=== PATIENT | female | born 1965 | race Caucasian/White ===

== ENCOUNTER 2021-06-06 05:56 | Day surgery (SDC) | payer BC ==
[2021-06-06] MEDS ORDERED: Acetaminophen 325 MG Tab PO SCH (06:00)
[2021-06-06] MEDS ORDERED: oxyCODONE ER 10 MG TAB.ER PO SCH (06:00)
[2021-06-06] MEDS ORDERED: Pregabalin 25 MG Cap PO SCH (06:00)
[2021-06-06] MEDS ORDERED: Morphine 8 MG, EPINEPHrine 0.3 MG, Cefuroxime 750 MG, Ketorolac 30 MG, Sodium Chloride ... PRN ×5 (06:00)
--- NOTE | 2021-06-06 06:23 | PCM.PREANE ---
Preanesthetic Assessment - Procedure Proposed Procedure: Right total knee arthroplasty - Anesthesia/Transfusion/Family Hx Anesthesia History: Prior Anesthesia Without Reaction Family History of Anesthesia Reaction: No Transfusion History: No Prior Transfusion(s) Intubation History: Unknown - Review of Systems General: No Symptoms Pulmonary: No Symptoms Cardiovascular: No Symptoms Gastrointestinal: No Symptoms Neurological: No Symptoms Other: Reports: None - Physical Assessment NPO Status Date: 06/05/21 NPO Status Time: 20:30 Vital Signs: 113/78 HR 76 97.6 RR 16 96% RA Height: 1.83 m Weight: 122.9 kg ASA Class: 2 Mental Status: Alert & Oriented x3 Airway Class: Mallampati = 3 Dentition: Reports: Dentures (top ), Partial (bottom) Thyro-Mental Finger Breadths: 3 Mouth Opening Finger Breadths: 2 ROM/Head Extension: Full Lungs: Clear to Auscultation, Normal Respiratory Effort Cardiovascular: Regular Rate, Regular Rhythm, No Murmurs - Lab Values: Labs within acceptable range and okay to proceed - Imaging/EKG Impressions: EKG NSR HR 60 - Allergies Allergies/Adverse Reactions: Allergies Allergy/AdvReac Type Severity Reaction Status Date / Time No Known Allergies Allergy Verified 06/05/21 12:45 - Blood Blood Available: No - Acknowledgements Anesthesia Type Planned: General Anesthesia, Spinal Pt an Appropriate Candidate for the Planned Anesthesia: Yes Alternatives and Risks of Anesthesia Discussed w Pt/Guardian: Yes Pt/Guardian Understands and Agrees with Anesthesia Plan: Yes PreAnesthesia Questionnaire HEENT History: Reports: Impaired Vision Cardiovascular History: Reports: None Respiratory History: Reports: None Gastrointestinal History: Reports: Colon Polyp, GERD (food dependent), Other (See Below) (vit D deiciency) Genitourinary History: Reports: None Musculoskeletal History: Reports: Arthritis, Other (See Below) Other Musculoskeletal History: chronic knee pain Neurological History: Reports: Other (See Below) (Restless legs) Psychiatric History: Reports: None Endocrine/Metabolic History: Reports: Obesity/BMI 30+ Hematologic History: Reports: None Immunologic History: Reports: None Oncologic (Cancer) History: Reports: None Dermatologic History: Reports: None - Past Surgical History HEENT Surgical History: Reports: Naso-Sinus Surgery (somnoplasty), Other (See Below) (uvulectomy) GI Surgical History: Reports: Appendectomy, Cholecystectomy, Colonoscopy Female Surgical History: Reports: Hysterectomy, Tubal Ligation Musculoskeletal Surgical History: Reports: Other (See Below) (hammer toe R, zzhallux valgus correction wwo sesamoidectomy smpl exostectomy) Dermatological Surgical History: Reports: Other (See Below) (fatty tumor removed from left neck) - SUBSTANCE USE Tobacco Use Status *Q: Former Tobacco User (quit 5 years ago) Second Hand Smoke Exposure: No Days Per Week of Alcohol Use: 0 Number of Drinks Per Day: 0 Total Drinks Per Week: 0 Recreational Drug Use History: No - HOME MEDS Home Medications: Home Meds Aspirin [Aspirin EC] 325 mg PO BID #84 tab 06/05/21 [Rx] Doxepin HCl 150 mg PO DAILY 06/05/21 [History] Pramipexole Di-HCl [Mirapex] 1.5 mg PO DAILY 06/05/21 [History] oxyCODONE 5 - 10 mg PO Q4H PRN #40 tab 06/05/21 [Rx] - CURRENT (IN HOUSE) MEDS Current Meds: Current Medications Acetaminophen (Acetaminophen 325 Mg Tab) 975 mg PO ONETIME ARELY Stop: 06/06/21 16:00 Morphine Sulfate 8 mg/Epinephrine HCl 0.3 mg/Cefuroxime Sodium 750 mg/Ketorolac Tromethamine 30 mg/Sodium Chloride 7.9 ml 0 mg .XX ASDIRECTED PRN PRN Reason: Pain Lactated Ringer's (Ringers, Lactated) 1,000 mls @ 125 mls/hr IV ASDIRECTED ARELY Stop: 06/06/21 23:00 Lidocaine/Sodium Bicarbonate (Lidocaine 1%/Sod Bicarbonate In Ns 8.4% 1 Ml Syringe) 0.25 ml IDERM ONETIME PRN PRN Reason: Prior to IV Start Stop: 06/06/21 18:00 Oxycodone HCl (Oxycodone Er 10 Mg Tab.Er) 10 mg PO ONETIME ARELY Stop: 06/06/21 16:00 Pregabalin (Pregabalin 25 Mg Cap) 50 mg PO ONETIME ARELY Stop: 06/06/21 16:00 Sodium Chloride (Sodium Chloride 0.9% 10 Ml Syringe) 10 ml FLUSH ASDIRECTED PRN PRN Reason: Keep Vein Open Stop: 06/06/21 18:00
[2021-06-06] MEDS ORDERED: Vancomycin 1 GM SDV ONE (06:31)
[2021-06-06] MEDS ORDERED: Ropivacaine 0.5% 5 MG/ML 30 ML SDV ONE (06:49)
[2021-06-06] MEDS ORDERED: ceFAZolin 1 GM Vial ONE (06:49)
[2021-06-06] MEDS ORDERED: EPINEPHrine 1 MG/ML SDV ONE (06:49)
[2021-06-06] MEDS ORDERED: Midazolam 1 MG/ML 2 ML SDV ONE (06:50)
[2021-06-06] MEDS ORDERED: Propofol 200 MG/20 ML SDV ONE ×4 (06:50→08:20)
[2021-06-06] MEDS ORDERED: fentaNYL 100 MCG/2 ML SDV ONE (06:50)
[2021-06-06] MEDS ORDERED: Sodium Chloride 0.9% 10 ML Syringe FLUSH PRN (07:00)
[2021-06-06] MEDS ORDERED: Lidocaine 1%/Sod Bicarbonate in NS 8.4% 1 ML Syringe IDERM PRN (07:00)
[2021-06-06] MEDS ORDERED: Lactated Ringers 1,000 ML IV SCH (07:00)
[2021-06-06] MEDS ORDERED: ePHEDrine 50 MG/ML SDV ONE (08:05)
[2021-06-06] MEDS ORDERED: Lactated Ringers 1,000 ML ONE (08:10)
[2021-06-06] MEDS ORDERED: fentaNYL 100 MCG/2 ML SDV IVPUSH PRN (09:09)
[2021-06-06] MEDS ORDERED: HYDROmorphone 0.5 MG/0.5 ML Syringe IVPUSH PRN (09:09)
[2021-06-06] MEDS ORDERED: Ondansetron 4 MG/2 ML SDV IVPUSH PRN (09:09)
--- NOTE | 2021-06-06 09:09 | PCM.POSTAN ---
POST ANESTHESIA ASSESSMENT - MENTAL STATUS Mental Status: Alert, Oriented - VITAL SIGNS Vital Signs: Last Vital Signs Temp 98.1 F 06/06/21 09:07 Pulse 77 06/06/21 09:07 Resp 13 06/06/21 09:07 BP 97/64 06/06/21 09:07 Pulse Ox 94 L 06/06/21 09:07 - RESPIRATORY Respiratory Status: Respiratory Rate WNL, Airway Patent, O2 Saturation Stable - CARDIOVASCULAR CV Status: Pulse Rate WNL, Blood Pressure Stable - GASTROINTESTINAL GI Status: No Symptoms - PAIN Pain Score: 0 - POST OP HYDRATION Hydration Status: Adequate & Stable
--- NOTE | 2021-06-06 09:12 | PCM.PRNOTE ---
- Free Text/Narrative Note: Right selective femoral nerve block at the adductor canal for post-procedure pain control under US guidance requested by Dr. Chambers. Time Out: 856 Start: 899 End: 903 Chart reviewed. Consent signed. Questions answered. Appropriate monitors applied. Time out performed. Right mid-shaft femur identified with ultrasound, scanning medially of femur, the femoral artery in the adductor canal visualized, and the femoral nerve located laterally to the artery. The skin was prepped lateral to the ultrasound probe with chlorahexadine times two. The 21ga 4 insulated block needle was inserted under direct ultrasound guidance into the adductor canal. 20mL of 0.5% ropivacaine with 1:200,000 epinephrine was injected circumferentially around the nerve with intermittent negative aspiration noted. Patient tolerated the procedure well. Sterile technique noted along with sterile gloves, mask, and sterile probe cover. See picture on progress note and vital signs on nurses notes. Block completed in PACU. Valentina Juarez, BILLING MACHINE OPERATOR
[2021-06-06] MEDS ORDERED: oxyCODONE 5 MG Tab PO PRN (09:38)
--- NOTE | 2021-06-06 09:40 | CR ---
Right knee: AP and crosstable lateral views of the right knee were obtained. Comparison: Prior right knee CT study performed on 05/23/21. Knee prosthesis is noted as well as patellar prosthesis. Components are aligned. Soft tissue air is noted from the surgical procedure. Underlying bony structures show nothing acute. Impression: 1. Satisfactory postoperative radiographic appearance of recently placed right knee prostheses. Diagnostic code #2
--- NOTE | 2021-06-06 13:52 | PCM48HPAN ---
Post Anesthesia Note - EVALUATION WITHIN 48HRS OF ANESTHETIC Vital Signs in Normal Range: Yes Patient Participated in Evaluation: Yes Respiratory Function Stable: Yes Airway Patent: Yes Cardiovascular Function Stable: Yes Hydration Status Stable: Yes Pain Control Satisfactory: Yes Nausea and Vomiting Control Satisfactory: Yes Mental Status Recovered: Yes Vital Signs: Last Vital Signs Temp 97 F 06/06/21 12:00 Pulse 72 06/06/21 12:00 Resp 16 06/06/21 12:00 BP 102/97 H 06/06/21 12:00 Pulse Ox 97 06/06/21 12:00
--- NOTE | 2021-06-13 16:56 | PCM.OPNOTE ---
- General Post-Op/Procedure Note Date of Surgery/Procedure: 06/06/21 Operative Procedure(s): right total knee arthroplasty with [employer] Pre Op Diagnosis: right knee osteoarthrosis Post-Op Diagnosis: Same Anesthesia Technique: Local, MAC, Spinal Primary Surgeon: Cameron Chambers Anesthesia Provider: Valentina Juarez Shipyard Helper: Janki Saldivar Shipyard Helper: Pau Edwards EBL in mLs: 100 Complications: None Condition: Good Free Text/Narrative:: 11/01 9mm 35x10
--- NOTE | 2021-06-14 10:23 | OR ---
DATE OF OPERATION: 06/06/2021 SURGEON: Cameron Chambers MD OPERATION PERFORMED: Right total knee arthroplasty with [employer] PREOPERATIVE DIAGNOSIS: Right knee osteoarthrosis. POSTOPERATIVE DIAGNOSIS: Right knee osteoarthrosis. ANESTHESIA: Local MAC with spinal. ANESTHESIA PROVIDER: Samir Benavides. ASSISTANTS: Janki Saldivar PA-C and Pau Edwards LPN. ESTIMATED BLOOD LOSS: 100 mL. COMPLICATIONS: None. CONDITION: Stable. IMPLANT: 1. Jaimee size 5 press-fit CR femur. 2. [employer]more size 5 press-fit tibial baseplate. 3. Jaimee size 5, 9 mm CS polyethylene insert. 4. Jaimee size 35 x 10 mm press-fit asymmetric patella. DESCRIPTION OF PROCEDURE: The patient was identified in the preop holding area. Proper site was marked and identified by the surgeon. The patient was taken back to the operating theater, where after adequate anesthesia, the patient's right lower extremity had a nonsterile tourniquet applied and then it was sterilely prepped and draped in the usual sterile fashion. OR time-out was performed. The patient received 2 g IV Ancef. Leg marc was then applied to the right lower extremity. At this time, the right lower extremity was exsanguinated. Tourniquet was insufflated to 250 mmHg. Standard anterior incision was made. Medial parapatellar arthrotomy was created. Deep fibers of the MCL were raised and anterior fat pad was resected. Attention was turned to the patella. Patella measured 24, it was resected to a 14 for a 35 x 10 mm patella. Drill holes were then drilled. Attention was then turned to the femur. Two 4.0 Schanz pins were placed intra-incisionally on the femur for the Jaime[employer] robotic array and then 2 more were placed on the tibia 3 fingerbreadths below the tibial tubercle. The Jaimee Ben robotic arrays were placed on both the femur and the tibia at this time as well as checkpoints on the femur and tibia. Hip center rotation was then obtained. The medial and lateral malleoli were marked as well as the checkpoints were marked for the [employer] robotic plan. The patients knee was brought to full extension, varus and valgus stresses were applied, and then into 90 degrees of flexion. [employer] robotic plan for this patient was then undertaken to match the flexion and extension gaps. A straight saw blade was then brought in. Tibial cut was completed as well as an anterior femoral cut, anterior chamfer cut, and posterior femoral cut. Saw blade was then switched out and the distal femoral cut as well as the posterior chamfer cut was completed. All bony fragments were removed. At this time, medial and lateral menisci were resected as well as any posterior osteophytes. Attention was turned to the tibia. The size 5 trial baseplate was placed on the tibia and a size 5 trial femur was placed on the femur. A size 5, 9 mm CS trial poly was placed. The patient's knee was brought to full extension and flexion. Varus and valgus stresses were applied, was found to be stable with no instability. No signs of liftoff or loosening on the tibial baseplate. At this time, femoral drill holes were drilled, and the tibia was stamped and drilled in proper rotation. All trial implants were then removed. The size 5 tibial baseplate was impacted into place, size 5 femoral component was impacted into place, and then a size 7, 9 mm CS polyethylene insert was impacted into place. A size 35 x 10 mm press-fit patella was then press-fit into place. The tourniquet was deflated. Bleeders were cauterized. 1 L pulse lavage irrigation with Ancef was irrigated through the knee along with 400 mL Irrisept irrigation. Periarticular injection was completed. Topical tranexamic acid and vancomycin powder were applied. All checkpoints and pins were removed. At this point, a #2 barbed suture was used for closure of the medial parapatellar arthrotomy in flexion. 2- 0 Vicryl and Stratafix were used for subcutaneous closure. Prineo was used for cutaneous closure. 3-0 nylons were used for closure of the pin holes on the tibia. The patient had a sterile soft dressing applied. The patient had an SAM wrap applied and was sent to PACU in stable condition. The patient tolerated the procedure well. NEFTALI /[id number]
== END 2021-06-06 13:00 | disposition home or self-care (01) ==
LOC: JD.SDS 05:56
PROVIDERS: ATTEND Orthopaedic Surgery
DX: M17.11 Unilateral primary osteoarthritis, right knee (principal); E66.9 Obesity, unspecified; E55.9 Vitamin D deficiency, unspecified; G89.29 Other chronic pain; G25.81 Restless legs syndrome; Z90.49 Acquired absence of other specified parts of digestive tract; Z98.890 Other specified postprocedural states; Z79.899 Other long term (current) drug therapy; Z68.36 Body mass index [BMI] 36.0-36.9, adult; Z87.891 Personal history of nicotine dependence
CPT/HCPCS: 27447; 73560; 97110; 97116; 97161; A9270; C1713; C1776; J0171; J0690; J0697; J1885; J2250; J2270; J2370; J2704; J2795; J3010; J3370; J7120; 01214; 64450; 76942

== ENCOUNTER 2023-03-12 09:51 | Day surgery (SDC) | payer BC ==
[~2023-03-12 09:51] MED LIST: Dexmedetomidine 200 MCG/2 ML SDV ONE; EPINEPHrine 1 MG/ML SDV ONE; Lactated Ringers 1,000 ML IV SCH; Morphine 8 MG, EPINEPHrine 0.3 MG, Cefuroxime 750 MG, Ketorolac 30 MG, Sodium Chloride ... PRN; Ropivacaine 0.5% 5 MG/ML 30 ML SDV ONE; Sodium Chloride 0.9% 10 ML Syringe FLUSH PRN; Sodium Chloride 0.9% 10 ML Syringe FLUSH SCH
[2023-03-12] MEDS ORDERED: Pregabalin 25 MG Cap PO ONE ×2 (10:00→12:15)
[2023-03-12] MEDS ORDERED: Acetaminophen 325 MG Tab PO ONE ×2 (10:00→12:15)
[2023-03-12] MEDS ORDERED: oxyCODONE ER 10 MG TAB.ER PO ONE ×2 (10:00→12:15)
[2023-03-12] MEDS ORDERED: Tranexamic Acid 1,000 MG/10 ML Vial ONE (11:35)
[2023-03-12] MEDS ORDERED: Vancomycin 1 GM SDV ONE (11:35)
[2023-03-12] MEDS ORDERED: fentaNYL 100 MCG/2 ML SDV ONE (12:47)
[2023-03-12] MEDS ORDERED: Lidocaine 1% 5 ML VIAL ONE (12:47)
[2023-03-12] MEDS ORDERED: Propofol 200 MG/20 ML SDV ONE ×2 (12:47→14:09)
[2023-03-12] MEDS ORDERED: Midazolam 1 MG/ML 2 ML SDV ONE (12:47)
[2023-03-12] MEDS ORDERED: ceFAZolin 2 GM Vial ONE (12:49)
[2023-03-12] MEDS ORDERED: HYDROmorphone 0.5 MG/0.5 ML Syringe IVPUSH PRN (13:13)
[2023-03-12] MEDS ORDERED: Ondansetron 4 MG/2 ML SDV IVPUSH PRN (13:13)
[2023-03-12] MEDS ORDERED: fentaNYL 100 MCG/2 ML SDV IVPUSH PRN (13:13)
[2023-03-12] MEDS ORDERED: ePHEDrine 50 MG/ML SDV ONE (13:31)
[2023-03-12] MEDS ORDERED: Ondansetron 4 MG/2 ML SDV ONE (13:33)
[2023-03-12] MEDS ORDERED: Lactated Ringers 1,000 ML ONE ×2 (13:33→14:12)
[2023-03-12] MEDS ORDERED: Dexamethasone 4 MG/ML 5 ML MDV ONE (13:35)
[2023-03-12] MEDS ORDERED: Ketorolac 30 MG/ML SDV ONE (14:10)
[2023-03-12] MEDS ORDERED: oxyCODONE 5 MG Tab PO ONE (16:40)
== END 2023-03-12 18:45 | disposition home or self-care (01) ==
LOC: JD.SDS 09:51
PROVIDERS: ATTEND Orthopaedic Surgery
DX: M17.12 Unilateral primary osteoarthritis, left knee (principal); G89.29 Other chronic pain; G25.81 Restless legs syndrome; K21.9 Gastro-esophageal reflux disease without esophagitis; E66.9 Obesity, unspecified; Z87.891 Personal history of nicotine dependence; Z79.899 Other long term (current) drug therapy; Z68.38 Body mass index [BMI] 38.0-38.9, adult; Z70.1 Counseling related to patient's sexual behavior and orientation
CPT/HCPCS: 0055T; 27447; 64447; 73560; 97110; 97116; 97161; A9270; C1713; C1776; J0171; J0690; J0697; J1100; J1885; J2250; J2270; J2405; J2704; J2795; J3010; J3370; J7030; J7120; 01402; J3490

== ENCOUNTER 2023-10-28 13:52 | Emergency (ER) | payer BC, OTHER ==
[2023-10-28 16:29] LABS: BASOPHILS ABSOLUTE AUTO 0.1 K/mm3 (0.0-0.2); EOSINOPHILS ABSOLUTE AUTO 0.1 K/mm3 (0.0-0.4); EOSINOPHILS PERCENT AUTO 1.3 % (0.0-6.0); HEMATOCRIT 43.9 % (37.0-47.0); HEMOGLOBIN 14.8 gm/dl (12.0-16.0); IMMATURE GRAN ABSOLUTE AUTO 0.03 K/mm3 (0.00-0.05); IMMATURE GRAN PERCENT AUTO 0.4 % (0.0-0.4); LYMPHOCYTES ABSOLUTE AUTO 2.3 K/mm3 (1.0-4.8); LYMPHOCYTES PERCENT AUTO 30.4 % (24.0-44.0); MEAN CORPUSCULAR HEMOGLOBIN 29.7 pg (28.0-32.0); MEAN CORPUSCULAR HGB CONC 33.7 g/dl (32.0-36.0); MEAN CORPUSCULAR VOLUME 88.2 fl (83.0-99.0); MEAN PLATELET VOLUME 8.9 fl (9.4-12.3); MONOCYTES ABSOLUTE AUTO 0.5 K/mm3 (0.0-0.8); MONOCYTES PERCENT AUTO 6.2 % (0.0-8.0); NEUTROPHILS ABSOLUTE AUTO 4.7 K/mm3 (1.8-7.7); NEUTROPHILS PERCENT AUTO 60.7 % (41.0-71.0); PLATELET COUNT,PLT 302 K/mm3 (150-400); RED BLOOD CELL COUNT 4.98 M/mm3 (4.10-5.30)
[2023-10-28] MEDS ORDERED: predniSONE 20 MG Tab ONE (16:54)
[2023-10-28] MEDS ORDERED: Acetaminophen/HYDROcodone 325-10 MG Tab ONE (16:55)
[2023-10-28] MEDS: predniSONE 20 MG Tab PO ONE (16:56)
[2023-10-28] MEDS: Acetaminophen/HYDROcodone 325-10 MG Tab PO ONE (16:56)
[2023-10-28] MEDS ORDERED: Ketorolac 60 MG/2 ML SDV ONE (16:58)
[2023-10-28] MEDS: Ketorolac 60 MG/2 ML SDV IM ONE (16:59)
[2023-10-28 18:40] LABS: A/G RATIO 1.1 (1-2); ANION GAP 16.9 (5-15); BILIRUBIN TOTAL 0.5 mg/dL (0.2-1.0); C-REACTIVE PROTEIN 0.38 mg/dL (<0.30); CALCIUM 9.6 mg/dL (8.5-10.1); CREATININE 1.2 mg/dL (0.55-1.02); EST CRCL DRUG DOSING (CG) 57.81 mL/min; POTASSIUM,K 4.9 mEq/L (3.5-5.1); PROTEIN TOTAL,TP 7.5 g/dl (6.4-8.2)
== END 2023-10-28 18:19 | disposition home or self-care (01) ==
LOC: JD.ED 13:52
DX: M54.40 Lumbago with sciatica, unspecified side (principal); E66.9 Obesity, unspecified; Z68.41 Body mass index [BMI] 40.0-44.9, adult; Z79.899 Other long term (current) drug therapy; Z90.49 Acquired absence of other specified parts of digestive tract; Z90.710 Acquired absence of both cervix and uterus
CPT/HCPCS: 36415; 80053; 83735; 85025; 85652; 86140; 96372; 99284; A9270; J1885; J7512

== ENCOUNTER 2023-11-05 09:29 | Emergency (ER) | payer OTHER ==
[2023-11-05] MEDS: Adenosine 6 MG/2 ML SDV IVPUSH ONE ×2 (09:46→09:47)
[2023-11-05] MEDS: Diltiazem 25 MG/5 ML SDV IVPUSH ONE (09:52)
[2023-11-05 09:57] LABS: BASOPHILS ABSOLUTE AUTO 0.1 K/mm3 (0.0-0.2); BASOPHILS PERCENT AUTO 0.2 % (0.0-1.0); HEMATOCRIT 38.5 % (37.0-47.0); IMMATURE GRAN ABSOLUTE AUTO 0.65 K/mm3 (0.00-0.05); IMMATURE GRAN PERCENT AUTO 3.1 % (0.0-0.4); LYMPHOCYTES ABSOLUTE AUTO 1.9 K/mm3 (1.0-4.8); MEAN CORPUSCULAR VOLUME 88.3 fl (83.0-99.0); MEAN PLATELET VOLUME 11.9 fl (9.4-12.3); MONOCYTES ABSOLUTE AUTO 1.2 K/mm3 (0.0-0.8); MONOCYTES PERCENT AUTO 5.6 % (0.0-8.0); NEUTROPHILS ABSOLUTE AUTO 17.5 K/mm3 (1.8-7.7); NEUTROPHILS PERCENT AUTO 82.1 % (41.0-71.0); NRBC PERCENT 4.2 % (0.0-0.2); RED BLOOD CELL COUNT 4.36 M/mm3 (4.10-5.30); WHITE BLOOD CELL COUNT,WBC 21.29 K/mm3 (3.9-11.3)
[2023-11-05] MEDS: Diltiazem 125 MG in Sodium Chloride 0.9% 100 ML IV SCH (09:57)
[2023-11-05] MEDS: Sodium Chloride 0.9% 1,000 ML IV SCH (09:58)
[2023-11-05] MEDS: Diltiazem 25 MG/5 ML SDV ONE (09:59)
[2023-11-05 10:20] LABS: HEMOGLOBIN 13.1 gm/dl (12.0-16.0)
[2023-11-05 10:24] LABS: A/G RATIO 1.5 (1-2); ALBUMIN 4.2 g/dl (3.4-5.0); ANION GAP 22.1 (5-15); BILIRUBIN TOTAL 4.9 mg/dL (0.2-1.0); BUN/CREATININE RATIO 37.6 (14-18); CREATININE 3.4 mg/dL (0.55-1.02); EST CRCL DRUG DOSING (CG) 20.4 mL/min; MAGNESIUM 2.4 mg/dL (1.8-2.4); POTASSIUM,K 5.1 mEq/L (3.5-5.1); PROTEIN TOTAL,TP 7.1 g/dl (6.4-8.2)
[2023-11-05] MEDS: Propofol 200 MG/20 ML SDV IVPUSH ONE (10:30)
[2023-11-05] MEDS: Adenosine 12 MG/4 ML SDV ONE (11:38)
[2023-11-05] MEDS: Adenosine 6 MG/2 ML SDV ONE (11:38)
[2023-11-05] MEDS: Sodium Chloride 0.9% 10 ML Syringe FLUSH PRN (11:38)
[2023-11-05 11:40] LABS: INR 2.01; PROTHROMBIN TIME 20.4 SECONDS (9.7-12.0)
[2023-11-05 11:50] LABS: SLIDE REVIEW ABNORMAL SMEAR
[2023-11-05] MEDS: cefTRIAXone 2 GM in Sodium Chloride 0.9% 100 ML IV ONE (12:25)
[2023-11-05] MEDS: Aspirin 81 MG Tab.Chew PO ONE (12:25)
[2023-11-05 12:44] LABS: BASE EXCESS ARTERIAL -9.5 (-2-2.0); BICARBONATE,ARTERIAL 13.7 meq/L (22.0-26.0); O2 SATURATION ARTERIAL 94.9 % (96.0-97.0); PCO2 ARTERIAL 23.6 mmHg (35.0-45.0)
[2023-11-05] MEDS: metroNIDAZOLE/Normal Saline 500 MG in Premix Bag 1 BAG IV ONE (14:58)
[2023-11-05 15:14] LABS: PLATELET COUNT,PLT 49 K/mm3 (150-400)
== END 2023-11-05 15:33 ==
LOC: JD.ED 09:29
DX: A41.9 Sepsis, unspecified organism (principal); R65.20 Severe sepsis without septic shock; I47.10 Supraventricular tachycardia, unspecified; D69.6 Thrombocytopenia, unspecified; E87.1 Hypo-osmolality and hyponatremia; J18.9 Pneumonia, unspecified organism; I50.9 Heart failure, unspecified; N17.9 Acute kidney failure, unspecified; K72.00 Acute and subacute hepatic failure without coma; Z79.899 Other long term (current) drug therapy; K21.9 Gastro-esophageal reflux disease without esophagitis; Z90.49 Acquired absence of other specified parts of digestive tract; Z90.710 Acquired absence of both cervix and uterus
CPT/HCPCS: 36415; 36600; 71045; 76705; 80053; 80143; 80179; 80307; 82803; 83605; 83735; 83880; 84484; 85025; 85610; 86140; 87040; 92960; 93005; 96361; 96365; 96367; 96375; 99152; 99285; A9270; J0153; J0696; J1836; J2704; J3490; J7030; 93010

== ENCOUNTER 2023-11-19 11:10 | Inpatient (IN) | payer OTHER ==
[2023-11-19] MEDS: Metoprolol Tartrate 5 MG/5 ML SDV IVPUSH ONE ×2 (11:27→12:23)
[2023-11-19 11:33] LABS: BASOPHILS ABSOLUTE AUTO 0.1 K/mm3 (0.0-0.2); EOSINOPHILS ABSOLUTE AUTO 0.1 K/mm3 (0.0-0.4); EOSINOPHILS PERCENT AUTO 0.9 % (0.0-6.0); HEMATOCRIT 36.9 % (37.0-47.0); HEMOGLOBIN 11.7 gm/dl (12.0-16.0); IMMATURE GRAN ABSOLUTE AUTO 0.06 K/mm3 (0.00-0.05); IMMATURE GRAN PERCENT AUTO 0.7 % (0.0-0.4); LYMPHOCYTES ABSOLUTE AUTO 0.9 K/mm3 (1.0-4.8); LYMPHOCYTES PERCENT AUTO 10.7 % (24.0-44.0); MEAN CORPUSCULAR HEMOGLOBIN 29.3 pg (28.0-32.0); MEAN CORPUSCULAR HGB CONC 31.7 g/dl (32.0-36.0); MEAN CORPUSCULAR VOLUME 92.5 fl (83.0-99.0); MEAN PLATELET VOLUME 8.7 fl (9.4-12.3); MONOCYTES ABSOLUTE AUTO 0.4 K/mm3 (0.0-0.8); MONOCYTES PERCENT AUTO 5.3 % (0.0-8.0); NEUTROPHILS ABSOLUTE AUTO 6.7 K/mm3 (1.8-7.7); NEUTROPHILS PERCENT AUTO 81.4 % (41.0-71.0); PLATELET COUNT,PLT 518 K/mm3 (150-400); RED BLOOD CELL COUNT 3.99 M/mm3 (4.10-5.30); WHITE BLOOD CELL COUNT,WBC 8.16 K/mm3 (3.9-11.3)
[2023-11-19] MEDS: Diltiazem 25 MG/5 ML SDV IVPUSH ONE ×2 (11:38→12:02)
[2023-11-19 12:07] LABS: A/G RATIO 0.8 (1-2); ALBUMIN 3.1 g/dl (3.4-5.0); BILIRUBIN TOTAL 0.9 mg/dL (0.2-1.0); CALCIUM 9.2 mg/dL (8.5-10.1); EST CRCL DRUG DOSING (CG) 69.37 mL/min; MAGNESIUM 1.5 mg/dL (1.8-2.4); PHOSPHORUS 3.5 mg/dL (2.6-4.7); PROTEIN TOTAL,TP 7.1 g/dl (6.4-8.2)
[2023-11-19 12:12] LABS: INR 1.04; PROTHROMBIN TIME 11.1 SECONDS (9.7-12.0)
[2023-11-19 12:14] LABS: PTT,PARTIAL THROMBOPLSTIN TIME 27.6 SECONDS (21.7-31.4)
[2023-11-19 12:24] LABS: D-DIMER QUANTITATIVE 6.55 mg/L (0.19-0.50)
[2023-11-19] MEDS: Magnesium Sulfate/Water 4 GM in Premix Bag 1 BAG IV ONE (13:13)
[2023-11-19] MEDS: Diltiazem 125 MG in Sodium Chloride 0.9% 100 ML IV SCH (14:23)
[2023-11-19] MEDS: Heparin Sodium/D5W 25,000 UNITS/500 ML BAG IV SCH (14:27)
[2023-11-19] MEDS: Metoprolol Tartrate 25 MG Tab PO SCH (16:44)
[2023-11-19] MEDS: Adenosine 6 MG/2 ML SDV IVPUSH ONE (16:52)
[2023-11-19] MEDS: Warfarin 5 MG Tab PO ONE ×2 (17:30→17:31)
[2023-11-19] MEDS: Metoprolol Tartrate 50 MG Tab ONE (21:12)
[2023-11-19] MEDS: Metoprolol Tartrate 50 MG Tab PO SCH (22:02)
[2023-11-20 06:49] LABS: BASOPHILS ABSOLUTE AUTO 0.1 K/mm3 (0.0-0.2); BASOPHILS PERCENT AUTO 1.2 % (0.0-1.0); EOSINOPHILS ABSOLUTE AUTO 0.2 K/mm3 (0.0-0.4); EOSINOPHILS PERCENT AUTO 1.9 % (0.0-6.0); HEMATOCRIT 35.6 % (37.0-47.0); HEMOGLOBIN 11.5 gm/dl (12.0-16.0); IMMATURE GRAN ABSOLUTE AUTO 0.07 K/mm3 (0.00-0.05); IMMATURE GRAN PERCENT AUTO 0.8 % (0.0-0.4); LYMPHOCYTES ABSOLUTE AUTO 1.8 K/mm3 (1.0-4.8); LYMPHOCYTES PERCENT AUTO 21.3 % (24.0-44.0); MEAN CORPUSCULAR HEMOGLOBIN 29.4 pg (28.0-32.0); MEAN CORPUSCULAR HGB CONC 32.3 g/dl (32.0-36.0); MEAN PLATELET VOLUME 8.8 fl (9.4-12.3); MONOCYTES ABSOLUTE AUTO 0.7 K/mm3 (0.0-0.8); MONOCYTES PERCENT AUTO 7.7 % (0.0-8.0); NEUTROPHILS ABSOLUTE AUTO 5.7 K/mm3 (1.8-7.7); NEUTROPHILS PERCENT AUTO 67.1 % (41.0-71.0); PLATELET COUNT,PLT 495 K/mm3 (150-400); RED BLOOD CELL COUNT 3.91 M/mm3 (4.10-5.30); WHITE BLOOD CELL COUNT,WBC 8.42 K/mm3 (3.9-11.3)
[2023-11-20 07:12] LABS: INR 1.07; PROTHROMBIN TIME 11.4 SECONDS (9.7-12.0)
[2023-11-20 07:13] LABS: A/G RATIO 0.6 (1-2); ALBUMIN 2.7 g/dl (3.4-5.0); ANION GAP 16.2 (5-15); BILIRUBIN TOTAL 0.9 mg/dL (0.2-1.0); CALCIUM 8.5 mg/dL (8.5-10.1); EST CRCL DRUG DOSING (CG) 69.37 mL/min; MAGNESIUM 2.2 mg/dL (1.8-2.4); POTASSIUM,K 4.2 mEq/L (3.5-5.1); PROTEIN TOTAL,TP 7.1 g/dl (6.4-8.2)
[2023-11-20] MEDS ORDERED: PRAMIPEXOLE DI HCL 1.5 MG PO SCH (09:00)
[2023-11-20] MEDS: Furosemide 20 MG/2 ML VIAL IVPUSH ONE (09:03)
[2023-11-20] MEDS: cefTRIAXone 2 GM in Sodium Chloride 0.9% 100 ML IV SCH (09:09)
[2023-11-20] MEDS: Pantoprazole 40 MG Tab.CR PO SCH (11:02)
[2023-11-20] MEDS: Nystatin Topical Powder 15 GM Bottle TOP SCH (11:40)
[2023-11-20] MEDS: Pramipexole 0.5 MG Tab PO SCH ×2 (11:44→20:17)
[2023-11-20] MEDS ORDERED: Levalbuterol HCl 1.25 MG/3 ML Neb NEB PRN (12:08)
[2023-11-20] MEDS ORDERED: Ipratropium 0.02% 0.5 MG/2.5 ML Neb Soln NEB PRN (12:09)
[2023-11-20] MEDS: Warfarin 3 MG Tab PO SCH (17:19)
[2023-11-21 04:46] LABS: BASOPHILS ABSOLUTE AUTO 0.1 K/mm3 (0.0-0.2); BASOPHILS PERCENT AUTO 1.6 % (0.0-1.0); EOSINOPHILS ABSOLUTE AUTO 0.3 K/mm3 (0.0-0.4); EOSINOPHILS PERCENT AUTO 3.6 % (0.0-6.0); HEMATOCRIT 33.3 % (37.0-47.0); HEMOGLOBIN 10.7 gm/dl (12.0-16.0); IMMATURE GRAN ABSOLUTE AUTO 0.07 K/mm3 (0.00-0.05); LYMPHOCYTES ABSOLUTE AUTO 1.3 K/mm3 (1.0-4.8); LYMPHOCYTES PERCENT AUTO 18.9 % (24.0-44.0); MEAN CORPUSCULAR HEMOGLOBIN 29.2 pg (28.0-32.0); MEAN CORPUSCULAR HGB CONC 32.1 g/dl (32.0-36.0); MONOCYTES ABSOLUTE AUTO 0.7 K/mm3 (0.0-0.8); MONOCYTES PERCENT AUTO 10.2 % (0.0-8.0); NEUTROPHILS ABSOLUTE AUTO 4.5 K/mm3 (1.8-7.7); NEUTROPHILS PERCENT AUTO 64.7 % (41.0-71.0); PLATELET COUNT,PLT 426 K/mm3 (150-400); RED BLOOD CELL COUNT 3.66 M/mm3 (4.10-5.30); WHITE BLOOD CELL COUNT,WBC 6.88 K/mm3 (3.9-11.3)
[2023-11-21 05:33] LABS: A/G RATIO 0.7 (1-2); ALBUMIN 2.5 g/dl (3.4-5.0); BILIRUBIN TOTAL 0.4 mg/dL (0.2-1.0); CALCIUM 8.8 mg/dL (8.5-10.1); EST CRCL DRUG DOSING (CG) 69.37 mL/min; MAGNESIUM 1.7 mg/dL (1.8-2.4); PROTEIN TOTAL,TP 6.2 g/dl (6.4-8.2)
[2023-11-21 06:16] LABS: INR 1.09; PROTHROMBIN TIME 11.6 SECONDS (9.7-12.0)
[2023-11-21] MEDS: Magnesium Sulfate/Water 2 GM in Premix Bag 1 BAG IV ONE (09:15)
[2023-11-21 09:23] LABS: TSH 0.272 uIU/mL (0.358-3.74)
[2023-11-21 09:44] LABS: T4 FREE 1.46 ng/dL (0.76-1.46)
[2023-11-21] MEDS: Amiodarone 200 MG Tab PO SCH (10:46)
[2023-11-21] MEDS: Furosemide 20 MG/2 ML VIAL IVPUSH ONE (10:46)
[2023-11-21] MEDS: Metoprolol Tartrate 25 MG Tab PO SCH (11:35)
[2023-11-21] MEDS: Acetaminophen 325 MG Tab PO PRN (15:29)
[2023-11-21] MEDS: Warfarin 7.5 MG Tab PO ONE (17:41)
[2023-11-21] MEDS: Pramipexole 0.5 MG Tab PO SCH (21:13)
[2023-11-21] MEDS: Docusate Sodium 100 MG Cap PO PRN (21:13)
[2023-11-21] MEDS: Sodium Chloride 0.9% 100 ML ONE (21:56)
[2023-11-22 05:43] LABS: BASOPHILS ABSOLUTE AUTO 0.1 K/mm3 (0.0-0.2); BASOPHILS PERCENT AUTO 1.4 % (0.0-1.0); EOSINOPHILS ABSOLUTE AUTO 0.3 K/mm3 (0.0-0.4); HEMOGLOBIN 11.3 gm/dl (12.0-16.0); IMMATURE GRAN ABSOLUTE AUTO 0.05 K/mm3 (0.00-0.05); IMMATURE GRAN PERCENT AUTO 0.9 % (0.0-0.4); LYMPHOCYTES ABSOLUTE AUTO 1.5 K/mm3 (1.0-4.8); LYMPHOCYTES PERCENT AUTO 25.7 % (24.0-44.0); MEAN CORPUSCULAR HEMOGLOBIN 28.7 pg (28.0-32.0); MEAN CORPUSCULAR HGB CONC 32.3 g/dl (32.0-36.0); MEAN CORPUSCULAR VOLUME 88.8 fl (83.0-99.0); MEAN PLATELET VOLUME 9.4 fl (9.4-12.3); MONOCYTES ABSOLUTE AUTO 0.7 K/mm3 (0.0-0.8); MONOCYTES PERCENT AUTO 12.3 % (0.0-8.0); NEUTROPHILS ABSOLUTE AUTO 3.1 K/mm3 (1.8-7.7); NEUTROPHILS PERCENT AUTO 53.7 % (41.0-71.0); PLATELET COUNT,PLT 420 K/mm3 (150-400); RED BLOOD CELL COUNT 3.94 M/mm3 (4.10-5.30); WHITE BLOOD CELL COUNT,WBC 5.68 K/mm3 (3.9-11.3)
[2023-11-22 05:54] LABS: A/G RATIO 0.6 (1-2); ALBUMIN 2.5 g/dl (3.4-5.0); ANION GAP 14.8 (5-15); BILIRUBIN TOTAL 0.4 mg/dL (0.2-1.0); BUN/CREATININE RATIO 14.4 (14-18); CALCIUM 8.7 mg/dL (8.5-10.1); CREATININE 0.9 mg/dL (0.55-1.02); EST CRCL DRUG DOSING (CG) 77.08 mL/min; MAGNESIUM 1.9 mg/dL (1.8-2.4); POTASSIUM,K 3.8 mEq/L (3.5-5.1); PROTEIN TOTAL,TP 6.6 g/dl (6.4-8.2)
[2023-11-22 05:57] LABS: INR 1.08; PROTHROMBIN TIME 11.5 SECONDS (9.7-12.0)
[2023-11-22 06:24] LABS: PTT,PARTIAL THROMBOPLSTIN TIME 84.7 SECONDS (21.7-31.4)
[2023-11-22] MEDS: Furosemide 20 MG Tab PO SCH (09:00)
[2023-11-22] MEDS: Magnesium Oxide 400 MG Tab PO SCH (09:01)
[2023-11-22] MEDS: Metoprolol Tartrate 5 MG/5 ML SDV IVPUSH ONE (11:13)
[2023-11-22] MEDS: Potassium Chloride 10 MEQ Tab.ER PO ONE (12:08)
[2023-11-22] MEDS: Metoprolol Tartrate 5 MG/5 ML SDV IVPUSH PRN (15:37)
[2023-11-22] MEDS: amLODIPine 5 MG Tab PO SCH (17:11)
[2023-11-22] MEDS: Warfarin 7.5 MG Tab PO SCH (17:43)
[2023-11-23 05:29] LABS: BASOPHILS ABSOLUTE AUTO 0.1 K/mm3 (0.0-0.2); BASOPHILS PERCENT AUTO 1.7 % (0.0-1.0); EOSINOPHILS ABSOLUTE AUTO 0.4 K/mm3 (0.0-0.4); EOSINOPHILS PERCENT AUTO 6.6 % (0.0-6.0); HEMATOCRIT 35.8 % (37.0-47.0); HEMOGLOBIN 11.7 gm/dl (12.0-16.0); IMMATURE GRAN ABSOLUTE AUTO 0.06 K/mm3 (0.00-0.05); IMMATURE GRAN PERCENT AUTO 1.1 % (0.0-0.4); LYMPHOCYTES ABSOLUTE AUTO 1.4 K/mm3 (1.0-4.8); LYMPHOCYTES PERCENT AUTO 26.7 % (24.0-44.0); MEAN CORPUSCULAR HEMOGLOBIN 29.5 pg (28.0-32.0); MEAN CORPUSCULAR HGB CONC 32.7 g/dl (32.0-36.0); MEAN CORPUSCULAR VOLUME 90.2 fl (83.0-99.0); MEAN PLATELET VOLUME 9.5 fl (9.4-12.3); MONOCYTES ABSOLUTE AUTO 0.6 K/mm3 (0.0-0.8); MONOCYTES PERCENT AUTO 10.7 % (0.0-8.0); NEUTROPHILS ABSOLUTE AUTO 2.8 K/mm3 (1.8-7.7); NEUTROPHILS PERCENT AUTO 53.2 % (41.0-71.0); PLATELET COUNT,PLT 433 K/mm3 (150-400); RED BLOOD CELL COUNT 3.97 M/mm3 (4.10-5.30); WHITE BLOOD CELL COUNT,WBC 5.32 K/mm3 (3.9-11.3)
[2023-11-23 05:57] LABS: INR 1.37; PROTHROMBIN TIME 14.3 SECONDS (9.7-12.0)
[2023-11-23 06:10] LABS: A/G RATIO 0.7 (1-2); ALBUMIN 2.6 g/dl (3.4-5.0); ANION GAP 13.6 (5-15); BILIRUBIN TOTAL 0.4 mg/dL (0.2-1.0); BUN/CREATININE RATIO 15.6 (14-18); CALCIUM 8.7 mg/dL (8.5-10.1); CREATININE 0.9 mg/dL (0.55-1.02); EST CRCL DRUG DOSING (CG) 77.08 mL/min; MAGNESIUM 1.7 mg/dL (1.8-2.4); POTASSIUM,K 3.6 mEq/L (3.5-5.1); PROTEIN TOTAL,TP 6.5 g/dl (6.4-8.2)
[2023-11-23] MEDS: Potassium Chloride 20 MEQ Tab.ER PO ONE (10:15)
[2023-11-23] MEDS: Magnesium Sulfate/Water 2 GM/50 ML BAG IV ONE (11:02)
[2023-11-23] MEDS: Polyethylene Glycol 3350 Powder 17 GM Packet PO PRN (11:04)
[2023-11-23] MEDS: Warfarin 3 MG Tab PO SCH (17:27)
[2023-11-23] MEDS: Amitriptyline 25 MG Tab PO SCH (20:31)
[2023-11-24 05:39] LABS: HEMATOCRIT 35.4 % (37.0-47.0); HEMOGLOBIN 11.5 gm/dl (12.0-16.0); MEAN CORPUSCULAR HEMOGLOBIN 28.7 pg (28.0-32.0); MEAN CORPUSCULAR HGB CONC 32.5 g/dl (32.0-36.0); MEAN CORPUSCULAR VOLUME 88.3 fl (83.0-99.0); MEAN PLATELET VOLUME 9.5 fl (9.4-12.3); PLATELET COUNT,PLT 430 K/mm3 (150-400); RED BLOOD CELL COUNT 4.01 M/mm3 (4.10-5.30); WHITE BLOOD CELL COUNT,WBC 6.26 K/mm3 (3.9-11.3)
[2023-11-24 05:53] LABS: BUN/CREATININE RATIO 18.9 (14-18); CALCIUM 8.9 mg/dL (8.5-10.1); CREATININE 0.9 mg/dL (0.55-1.02); EST CRCL DRUG DOSING (CG) 77.08 mL/min; MAGNESIUM 1.8 mg/dL (1.8-2.4); PHOSPHORUS 4.2 mg/dL (2.6-4.7)
[2023-11-24 06:11] LABS: INR 1.89
[2023-11-24 06:27] LABS: PROTHROMBIN TIME 19.3 SECONDS (9.7-12.0)
[2023-11-24] MEDS: Warfarin 4 MG Tab PO SCH (18:13)
[2023-11-25 05:44] LABS: HEMATOCRIT 36.8 % (37.0-47.0); HEMOGLOBIN 11.8 gm/dl (12.0-16.0); MEAN CORPUSCULAR HEMOGLOBIN 28.9 pg (28.0-32.0); MEAN CORPUSCULAR HGB CONC 32.1 g/dl (32.0-36.0); MEAN PLATELET VOLUME 9.8 fl (9.4-12.3); PLATELET COUNT,PLT 412 K/mm3 (150-400); RED BLOOD CELL COUNT 4.09 M/mm3 (4.10-5.30); WHITE BLOOD CELL COUNT,WBC 6.71 K/mm3 (3.9-11.3)
[2023-11-25 05:45] LABS: ANION GAP 13.3 (5-15); BUN/CREATININE RATIO 18.9 (14-18); CALCIUM 9.3 mg/dL (8.5-10.1); CREATININE 0.9 mg/dL (0.55-1.02); EST CRCL DRUG DOSING (CG) 77.08 mL/min; POTASSIUM,K 4.3 mEq/L (3.5-5.1)
[2023-11-25 06:20] LABS: INR 2.1; PROTHROMBIN TIME 21.3 SECONDS (9.7-12.0)
[2023-11-25] MEDS: Metoprolol Tartrate 100 MG Tab PO SCH (17:54)
[2023-11-25] MEDS: Warfarin 5 MG Tab PO SCH (17:54)
[2023-11-25] MEDS: Amiodarone 200 MG Tab PO SCH (21:06)
[2023-11-26 06:18] LABS: INR 1.84; PROTHROMBIN TIME 18.8 SECONDS (9.7-12.0)
[2023-11-26] MEDS: Enoxaparin 150 MG/1 ML Syringe SUBCUT SCH (09:40)
[2023-11-26] MEDS: Warfarin 7.5 MG Tab PO SCH (17:35)
[2023-11-27 04:37] LABS: BASOPHILS ABSOLUTE AUTO 0.1 K/mm3 (0.0-0.2); BASOPHILS PERCENT AUTO 1.1 % (0.0-1.0); EOSINOPHILS ABSOLUTE AUTO 0.5 K/mm3 (0.0-0.4); EOSINOPHILS PERCENT AUTO 7.6 % (0.0-6.0); HEMATOCRIT 35.6 % (37.0-47.0); HEMOGLOBIN 11.5 gm/dl (12.0-16.0); IMMATURE GRAN PERCENT AUTO 2.8 % (0.0-0.4); LYMPHOCYTES ABSOLUTE AUTO 1.8 K/mm3 (1.0-4.8); LYMPHOCYTES PERCENT AUTO 24.7 % (24.0-44.0); MEAN CORPUSCULAR HEMOGLOBIN 28.8 pg (28.0-32.0); MEAN CORPUSCULAR HGB CONC 32.3 g/dl (32.0-36.0); MEAN CORPUSCULAR VOLUME 89.2 fl (83.0-99.0); MEAN PLATELET VOLUME 9.1 fl (9.4-12.3); MONOCYTES ABSOLUTE AUTO 0.9 K/mm3 (0.0-0.8); NEUTROPHILS ABSOLUTE AUTO 3.6 K/mm3 (1.8-7.7); NEUTROPHILS PERCENT AUTO 50.8 % (41.0-71.0); PLATELET COUNT,PLT 335 K/mm3 (150-400); RED BLOOD CELL COUNT 3.99 M/mm3 (4.10-5.30); WHITE BLOOD CELL COUNT,WBC 7.09 K/mm3 (3.9-11.3)
[2023-11-27 05:04] LABS: ANION GAP 11.4 (5-15); CALCIUM 8.8 mg/dL (8.5-10.1); EST CRCL DRUG DOSING (CG) 69.37 mL/min; MAGNESIUM 1.5 mg/dL (1.8-2.4); POTASSIUM,K 4.4 mEq/L (3.5-5.1)
[2023-11-27 06:01] LABS: INR 2.33; PROTHROMBIN TIME 23.4 SECONDS (9.7-12.0)
[2023-11-27] MEDS: Magnesium Sulfate/Water 2 GM in Premix Bag 1 BAG IV ONE (08:39)
[2023-11-27] MEDS ORDERED: Warfarin 7.5 MG Tab PO SCH (18:00)
== END 2023-11-27 11:30 | disposition home or self-care (01) | DRG 299 ==
LOC: JD.ED 11:10 → JD.ICU 13:40
PROVIDERS: ADMIT Internal Medicine; ATTEND Internal Medicine
DX: I82.403 Acute embolism and thrombosis of unspecified deep veins of lower extremity, bilateral (principal); I50.33 Acute on chronic diastolic (congestive) heart failure; J18.9 Pneumonia, unspecified organism; I47.10 Supraventricular tachycardia, unspecified; K21.9 Gastro-esophageal reflux disease without esophagitis; I48.91 Unspecified atrial fibrillation; G25.81 Restless legs syndrome; E66.9 Obesity, unspecified; I10 Essential (primary) hypertension; D75.839 Thrombocytosis, unspecified; D64.9 Anemia, unspecified; E83.42 Hypomagnesemia; Z96.659 Presence of unspecified artificial knee joint; M19.90 Unspecified osteoarthritis, unspecified site; Z98.890 Other specified postprocedural states; Z86.711 Personal history of pulmonary embolism; Z91.199 Patient's noncompliance with other medical treatment and regimen due to unspecified reason; Z87.01 Personal history of pneumonia (recurrent); Z79.899 Other long term (current) drug therapy; Z79.02 Long term (current) use of antithrombotics/antiplatelets; Z86.010 Personal history of colon polyps; Z68.30 Body mass index [BMI] 30.0-30.9, adult; Z90.49 Acquired absence of other specified parts of digestive tract; Z90.710 Acquired absence of both cervix and uterus; Z98.51 Tubal ligation status
CPT/HCPCS: 36415; 71045; 71045-26; 71046; 71046-26; 80048; 80053; 83735; 83880; 84100; 84439; 84443; 84484; 85025; 85027; 85379; 85610; 85730; 93005; 93010; 93306; 94667; 94668; 94762; 96365; 96375; 96376; 97162-GP; 97530-GP; 97597-GP; 97598-GP; 99285; 99285-25; A9270-GY; J0282; J0696; J1644; J1650; J1940; J3475; J3490

== ENCOUNTER 2023-12-18 18:14 | Inpatient (IN) | payer SELFPAY ==
[2023-12-18] MEDS ORDERED: Sodium Chloride 0.9% 10 ML Syringe FLUSH PRN (18:36)
[2023-12-18 19:10] LABS: BASOPHILS ABSOLUTE AUTO 0.1 K/mm3 (0.0-0.2); BASOPHILS PERCENT AUTO 0.8 % (0.0-1.0); EOSINOPHILS ABSOLUTE AUTO 0.3 K/mm3 (0.0-0.4); EOSINOPHILS PERCENT AUTO 2.9 % (0.0-6.0); HEMATOCRIT 39.8 % (37.0-47.0); HEMOGLOBIN 12.8 gm/dl (12.0-16.0); IMMATURE GRAN ABSOLUTE AUTO 0.06 K/mm3 (0.00-0.05); IMMATURE GRAN PERCENT AUTO 0.5 % (0.0-0.4); LYMPHOCYTES ABSOLUTE AUTO 1.7 K/mm3 (1.0-4.8); LYMPHOCYTES PERCENT AUTO 14.5 % (24.0-44.0); MEAN CORPUSCULAR HEMOGLOBIN 28.4 pg (28.0-32.0); MEAN CORPUSCULAR HGB CONC 32.2 g/dl (32.0-36.0); MEAN CORPUSCULAR VOLUME 88.4 fl (83.0-99.0); MONOCYTES ABSOLUTE AUTO 0.6 K/mm3 (0.0-0.8); MONOCYTES PERCENT AUTO 5.1 % (0.0-8.0); NEUTROPHILS ABSOLUTE AUTO 8.7 K/mm3 (1.8-7.7); NEUTROPHILS PERCENT AUTO 76.2 % (41.0-71.0); PLATELET COUNT,PLT 326 K/mm3 (150-400); WHITE BLOOD CELL COUNT,WBC 11.42 K/mm3 (3.9-11.3)
[2023-12-18 19:37] LABS: A/G RATIO 0.8 (1-2); ALBUMIN 3.4 g/dl (3.4-5.0); ANION GAP 12.8 (5-15); BILIRUBIN TOTAL 0.6 mg/dL (0.2-1.0); BUN/CREATININE RATIO 15.7 (14-18); C-REACTIVE PROTEIN 2.79 mg/dL (<0.30); CALCIUM 9.3 mg/dL (8.5-10.1); CREATININE 1.4 mg/dL (0.55-1.02); EST CRCL DRUG DOSING (CG) 49.55 mL/min; POTASSIUM,K 4.8 mEq/L (3.5-5.1); PROTEIN TOTAL,TP 7.9 g/dl (6.4-8.2)
[2023-12-18 19:56] LABS: INR 1.84; PROTHROMBIN TIME 18.8 SECONDS (9.7-12.0)
[2023-12-18] MEDS: Furosemide 20 MG/2 ML VIAL IVPUSH ONE (20:19)
[2023-12-18] MEDS: Furosemide 40 MG/4 ML VIAL IVPUSH ONE (20:22)
[2023-12-18 22:44] LABS: INR 1.85; PROTHROMBIN TIME 18.9 SECONDS (9.7-12.0)
[2023-12-18] MEDS: traMADol 50 MG Tab PO PRN (23:47)
[2023-12-19 04:53] LABS: BASOPHILS ABSOLUTE AUTO 0.1 K/mm3 (0.0-0.2); EOSINOPHILS ABSOLUTE AUTO 0.2 K/mm3 (0.0-0.4); EOSINOPHILS PERCENT AUTO 2.4 % (0.0-6.0); HEMATOCRIT 35.2 % (37.0-47.0); HEMOGLOBIN 11.5 gm/dl (12.0-16.0); IMMATURE GRAN ABSOLUTE AUTO 0.04 K/mm3 (0.00-0.05); IMMATURE GRAN PERCENT AUTO 0.4 % (0.0-0.4); LYMPHOCYTES ABSOLUTE AUTO 2.4 K/mm3 (1.0-4.8); LYMPHOCYTES PERCENT AUTO 26.7 % (24.0-44.0); MEAN CORPUSCULAR HEMOGLOBIN 28.2 pg (28.0-32.0); MEAN CORPUSCULAR HGB CONC 32.7 g/dl (32.0-36.0); MEAN CORPUSCULAR VOLUME 86.3 fl (83.0-99.0); MONOCYTES ABSOLUTE AUTO 0.7 K/mm3 (0.0-0.8); MONOCYTES PERCENT AUTO 7.3 % (0.0-8.0); NEUTROPHILS ABSOLUTE AUTO 5.6 K/mm3 (1.8-7.7); NEUTROPHILS PERCENT AUTO 62.2 % (41.0-71.0); PLATELET COUNT,PLT 296 K/mm3 (150-400); RED BLOOD CELL COUNT 4.08 M/mm3 (4.10-5.30); WHITE BLOOD CELL COUNT,WBC 9.01 K/mm3 (3.9-11.3)
[2023-12-19 04:54] LABS: APPEARANCE,URINE CLEAR (Clear); BILIRUBIN,URINE NEGATIVE (Negative); COLOR,URINE YELLOW (Yellow); GLUCOSE,URINE NEGATIVE (Negative); KETONES,URINE NEGATIVE (Negative); LEUKOCYTE ESTERASE,URINE NEGATIVE (Negative); NITRITE,URINE NEGATIVE (Negative); OCCULT BLOOD,URINE NEGATIVE (Negative); PROTEIN,URINE NEGATIVE (Negative); UROBILINOGEN,URINE 0.2 (0.2-1.0)
[2023-12-19 05:05] LABS: ANION GAP 13.1 (5-15); BUN/CREATININE RATIO 16.9 (14-18); CREATININE 1.3 mg/dL (0.55-1.02); EST CRCL DRUG DOSING (CG) 53.36 mL/min; POTASSIUM,K 4.1 mEq/L (3.5-5.1)
[2023-12-19] MEDS: Acetaminophen 325 MG Tab PO PRN (06:19)
[2023-12-19] MEDS: Digoxin 125 MCG Tab PO SCH (09:18)
[2023-12-19] MEDS: Furosemide 20 MG/2 ML VIAL IVPUSH SCH (09:18)
[2023-12-19] MEDS: Spironolactone 25 MG Tab PO SCH (09:19)
[2023-12-19] MEDS: Amiodarone 200 MG Tab PO SCH (09:19)
[2023-12-19] MEDS: Pramipexole 0.5 MG Tab PO SCH (09:19)
[2023-12-19] MEDS: Metoprolol Succinate 50 MG Tab.ER PO SCH (09:20)
[2023-12-19 11:32] LABS: INR 1.63; PROTHROMBIN TIME 16.8 SECONDS (9.7-12.0)
[2023-12-19] MEDS: Warfarin 2.5 MG Tab PO SCH (18:24)
[2023-12-19] MEDS ORDERED: Amitriptyline 25 MG Tab PO SCH (21:00)
[2023-12-20] MEDS ORDERED: Furosemide 40 MG Tab PO SCH (09:00)
[2023-12-20] MEDS ORDERED: Digoxin 125 MCG Tab PO SCH (09:00)
[2023-12-21] MEDS ORDERED: Warfarin 5 MG Tab PO SCH (18:00)
== END 2023-12-19 19:07 | disposition left against medical advice (07) | DRG 463 ==
LOC: JD.ED 18:14 → JD.MS 21:08
PROVIDERS: ADMIT Student in an Organized Health Care Education/Training Program; ATTEND Student in an Organized Health Care Education/Training Program
PROC: 0JBR0ZZ Excision of Left Foot Subcutaneous Tissue and Fascia, Open Approach (ICD-10-PCS; principal; 2023-12-19)
PROC: 0JBQ0ZZ Excision of Right Foot Subcutaneous Tissue and Fascia, Open Approach (ICD-10-PCS; 2023-12-19)
DX: M86.9 Osteomyelitis, unspecified (principal); I50.33 Acute on chronic diastolic (congestive) heart failure; J96.01 Acute respiratory failure with hypoxia; I96 Gangrene, not elsewhere classified; N17.9 Acute kidney failure, unspecified; I48.91 Unspecified atrial fibrillation; K21.9 Gastro-esophageal reflux disease without esophagitis; S91.309A Unspecified open wound, unspecified foot, initial encounter; I11.0 Hypertensive heart disease with heart failure; G25.81 Restless legs syndrome; M19.90 Unspecified osteoarthritis, unspecified site; D72.829 Elevated white blood cell count, unspecified; E66.01 Morbid (severe) obesity due to excess calories; Z79.01 Long term (current) use of anticoagulants; Z79.899 Other long term (current) drug therapy; Z86.010 Personal history of colon polyps; Z90.49 Acquired absence of other specified parts of digestive tract; Z98.890 Other specified postprocedural states; Z98.51 Tubal ligation status; Z90.710 Acquired absence of both cervix and uterus; Z96.659 Presence of unspecified artificial knee joint; Z86.711 Personal history of pulmonary embolism
CPT/HCPCS: 36415; 71045; 71045-26; 736302650; 73630-50; 80048; 80053; 81003; 83735; 83880; 84484; 85025; 85610; 86140; 93005; 93010; 93306; 93925; 93925-26; 93970; 93970-26; 94760; 96374; 97110-GP; 97161-GP; 99285; 99285-25; A9270-GY; J1940

== ENCOUNTER 2025-02-26 16:34 | Emergency (ER) | payer OTHER ==
[2025-02-26 17:18] LABS: BASOPHILS ABSOLUTE AUTO 0.1 K/mm3 (0.0-0.2); BASOPHILS PERCENT AUTO 0.8 % (0.0-1.0); EOSINOPHILS ABSOLUTE AUTO 0.1 K/mm3 (0.0-0.4); EOSINOPHILS PERCENT AUTO 0.4 % (0.0-6.0); IMMATURE GRAN ABSOLUTE AUTO 0.06 K/mm3 (0.00-0.05); IMMATURE GRAN PERCENT AUTO 0.5 % (0.0-0.4); LYMPHOCYTES ABSOLUTE AUTO 1.8 K/mm3 (1.0-4.8); LYMPHOCYTES PERCENT AUTO 15.6 % (24.0-44.0); MEAN PLATELET VOLUME 9.3 fl (9.4-12.3); MONOCYTES ABSOLUTE AUTO 0.7 K/mm3 (0.0-0.8); MONOCYTES PERCENT AUTO 5.6 % (0.0-8.0); NEUTROPHILS ABSOLUTE AUTO 9.0 K/mm3 (1.8-7.7); NEUTROPHILS PERCENT AUTO 77.1 % (41.0-71.0); NRBC ABSOLUTE 0.00 (0.00-0.02); NRBC PERCENT 0.0 % (0.0-0.2); PLATELET COUNT,PLT 292 K/mm3 (150-400); RED BLOOD CELL COUNT 4.73 M/mm3 (4.10-5.30); WHITE BLOOD CELL COUNT,WBC 11.63 K/mm3 (3.9-11.3)
[2025-02-26 17:36] LABS: INR 2.65
[2025-02-26 17:48] LABS: A/G RATIO 1.0 (1-2); ALANINE AMINOTRANSFERASE,ALT 45.0 U/L (14-59); ASPARTATE AMNIOTRANSFERASE,AST 41.0 U/L (15-37); BILIRUBIN TOTAL 0.6 mg/dL (0.2-1.0); BLOOD UREA NITROGEN,BUN 29.0 mg/dL (7-18); CARBON DIOXIDE,CO2 27.0 mEq/L (21-32); CHLORIDE,CL 103.0 mEq/L (98-107); CREATINE KINASE,CK 420.0 U/L (26-192); CREATININE 1.5 mg/dL (0.55-1.02); EST CRCL DRUG DOSING (CG) 44.21 mL/min; ESTIMATED GFR 40.0 mL/min (>60); GLUCOSE RANDOM 95.0 mg/dL (70-99); POTASSIUM,K 4.2 mEq/L (3.5-5.1); PROTEIN TOTAL,TP 7.5 g/dl (6.4-8.2); SODIUM,NA 139.0 mEq/L (136-145); TROPONIN I HIGH SENSITIVITY 16.0 pg/mL (<=51)
== END 2025-02-26 19:30 | disposition home or self-care (01) ==
LOC: JD.ED 16:34
DX: R06.02 Shortness of breath (principal); R94.31 Abnormal electrocardiogram [ECG] [EKG]; R79.89 Other specified abnormal findings of blood chemistry; I48.91 Unspecified atrial fibrillation; Z86.79 Personal history of other diseases of the circulatory system; I50.9 Heart failure, unspecified; K21.9 Gastro-esophageal reflux disease without esophagitis; E66.9 Obesity, unspecified; Z90.710 Acquired absence of both cervix and uterus; Z79.899 Other long term (current) drug therapy; Z88.1 Allergy status to other antibiotic agents; Z79.01 Long term (current) use of anticoagulants; Z68.41 Body mass index [BMI] 40.0-44.9, adult
CPT/HCPCS: 36415; 71045; 71045-26; 80053; 82550; 83690; 83735; 83880; 84484; 85025; 85610; 93005; 99285